=== PATIENT | male | born 1980 | race Caucasian/White ===

== ENCOUNTER 2018-04-16 23:06 | Emergency (ER) | payer SELFPAY ==
[2018-04-16] MEDS ORDERED: Lidocaine Viscous Sol 2% 15 ml UD Cup ONE (23:36)
[2018-04-16] MEDS ORDERED: Ibuprofen 200 MG TAB ONE (23:36)
[2018-04-16] MEDS ORDERED: Benzocaine 20% Spray 60 ML CAN ONE ×2 (23:50→23:52)
[2018-04-17] MEDS ORDERED: Amoxicillin/Potassium Clav 875 MG TAB ONE (00:18)
== END 2018-04-17 00:27 | disposition home or self-care (01) ==
LOC: SCSER 23:06
DX: J36 Peritonsillar abscess (principal); J45.909 Unspecified asthma, uncomplicated; F17.210 Nicotine dependence, cigarettes, uncomplicated
CPT/HCPCS: 99283